=== PATIENT | female | born 1950 | race Caucasian/White ===

== ENCOUNTER 2018-05-25 12:59 | Day surgery (SDC) | payer OTHER ==
[2018-05-24 15:45] LABS: BASOPHILS # (AUTO) 0.2 X10'3 (0-0.2); BASOPHILS % (AUTO) 2.3 % (0-1); EOSINOPHILS # (AUTO) 0.1 X10'3 (0-0.9); EOSINOPHILS % (AUTO) 1.5 % (0-6); LYMPHOCYTES % (AUTO) 26.4 % (21-51); MEAN CORPUSCULAR HEMOGLOBIN 34.1 PG (27.0-31.0); MEAN CORPUSCULAR HGB CONC 34.8 % (33.0-36.5); MEAN CORPUSCULAR VOLUME 98.1 FL (78-98); MEAN PLATELET VOLUME 7.8 FL (7.4-10.4); MONOCYTES # (AUTO) 0.6 X10'3 (0-0.9); MONOCYTES % (AUTO) 7.4 % (2-12); NEUTROPHILS # (AUTO) 4.7 X10'3 (1.8-7.7); NEUTROPHILS % (AUTO) 62.4 % (42-75); PRE OP HEMATOCRIT 36.7 % (35.0-45.0); PRE OP HEMOGLOBIN 12.8 g/dL (12.0-16.0); PRE OP PLATELET COUNT 344 X10'3 (140-440); RED BLOOD COUNT 3.75 X10'6 (4.20-5.60); RED CELL DISTRIBUTION WIDTH 13.1 % (11.5-14.5)
[2018-05-24 15:55] LABS: ALBUMIN/GLOBULIN RATIO 1.3 (1.1-1.5); ALKALINE PHOSPHATASE 98 IU/L (46-116); BLOOD UREA NITROGEN 6 MG/DL (7-18); BUN/CREATININE RATIO 6.7 (6.6-38.0); CALCIUM 8.9 MG/DL (8.5-10.1); CHLORIDE 98 MMOL/L (99-107); CREATININE 0.89 MG/DL (0.40-0.90); PRE OP ALT 17 U/L (30-65); PRE OP ANION GAP 14 (8-16); PRE OP AST 20 U/L (10-37); PRE OP BILIRUB, TOTAL 0.5 MG/DL (0.0-1.0); PRE OP GLUCOSE 79 MG/DL (70-104); PRE OP POTASSIUM 3.4 MMOL/L (3.4-5.1); PRE OP SODIUM 136 MMOL/L (135-145); TOTAL CARBON DIOXIDE 23.9 MMOL/L (24-32); TOTAL PROTEIN 7.1 G/DL (6.4-8.2); eGFR 64 ML/MIN
[2018-05-25] VITALS (7 sets, daily range): BP systolic 113–132; BP diastolic 64–81
[~2018-05-25] VITALS: Ht 157.5 cm; Wt 65.8 kg
[~2018-05-25 12:59] MED LIST: AMLO10TA PO; BUPR-83 PO; CYCL-1 PO; Cefazolin 2GM/50ML dext iso,osmotic IVPB IV ONE; EST1T PO; HYDR-3972 PO; LIDOcaine 1% (10mg/ml) 2ml vial ONE; MEDR2.5T7 PO; NAPR-996 PO; OMEP20CA10 PO; famotidine 20mg tablet PO ONE; ringers solution, lacted 1,000 ML IV SCH
[2018-05-25] MEDS ORDERED: BUPIVAcaine/PF 2.5mg/ml (0.25%) 10ml vial ONE (13:17)
[2018-05-25] MEDS ORDERED: sevoflurane 250ml liquid IH ONE (14:36)
[2018-05-25] MEDS ORDERED: ROPIVAcaine 0.5% (5mg/ml) 30ml vial ONE (14:39)
[2018-05-25] MEDS ORDERED: fentaNYL/PF 50MCG/1 ML 2ML syringe ONE (14:40)
[2018-05-25] MEDS ORDERED: midazolam 2 mg/2 ml injection ONE (14:42)
[2018-05-25] MEDS ORDERED: ringers solution, lacted 1,000 ML IV SCH (15:54)
[2018-05-25] MEDS ORDERED: ondansetron/PF 4mg/2ml inj IV PRN (15:55)
[2018-05-25] MEDS ORDERED: morphine 4 MG/ML inj SYRINge IV PRN ×2 (15:55)
[2018-05-25] MEDS ORDERED: proCHLORperazine 10 MG/2 ml inj IV PRN (15:55)
[2018-05-25] MEDS ORDERED: meperidine/PF 25mg/ml syringe IV PRN ×3 (15:55)
[2018-05-25] MEDS ORDERED: propofol inj 20 ML IV ONE (17:06)
== END 2018-05-25 17:50 | disposition home or self-care (01) ==
LOC: PAS 12:59
PROVIDERS: ATTEND Orthopaedic Surgery
DX: S52.572A Other intraarticular fracture of lower end of left radius, initial encounter for closed fracture (principal); G56.02 Carpal tunnel syndrome, left upper limb; I10 Essential (primary) hypertension; F41.8 Other specified anxiety disorders; F17.210 Nicotine dependence, cigarettes, uncomplicated; Z79.891 Long term (current) use of opiate analgesic; Z85.41 Personal history of malignant neoplasm of cervix uteri; Z88.5 Allergy status to narcotic agent; Z72.89 Other problems related to lifestyle; Z88.8 Allergy status to other drugs, medicaments and biological substances; Z98.890 Other specified postprocedural states; Z79.899 Other long term (current) drug therapy; W19.XXXA Unspecified fall, initial encounter; Y93.89 Activity, other specified; Y92.89 Other specified places as the place of occurrence of the external cause; Y99.8 Other external cause status
CPT/HCPCS: 25609; 36415; 64721; 80053; 85025; 93005; A6449; C1713; J0690; J2250; J2704; J2795; J3010; J3490; J7120; A6250; A7000

== ENCOUNTER 2024-03-26 14:20 | Outpatient (CLI) | payer OTHER ==
[~2024-03-26 14:20] MED LIST changes: +BUPR-114 PO; -BUPR-83 PO; -Cefazolin 2GM/50ML dext iso,osmotic IVPB IV ONE; -LIDOcaine 1% (10mg/ml) 2ml vial ONE; -OMEP20CA10 PO; +OMEP20CA15 PO; -famotidine 20mg tablet PO ONE; -ringers solution, lacted 1,000 ML IV SCH
== END 2024-03-26 23:59 | disposition home or self-care (01) ==
LOC: RAD 14:20
PROVIDERS: ATTEND General Practice
DX: M13.832 Other specified arthritis, left wrist (principal)
CPT/HCPCS: 73200